=== PATIENT | female | born 1995 | race Caucasian/White ===

== ENCOUNTER 2024-05-29 13:24 | Emergency (ER) | payer OTHER ==
[~2024-05-29] VITALS: Ht 162.6 cm; Wt 123.0 kg
[2024-05-29 13:37] VITALS: BP 179/103; PULSE 66; RESP 17; TEMP 97.5; O2SAT 100
[2024-05-29] MEDS ORDERED: TETRACAINE HCL/PF 0.5% OPTH 4 ML BTL ONE (14:30)
[2024-05-29] MEDS ORDERED: FLUORESCEIN OPTH STRIP 1 MG ONE (14:30)
[2024-05-29] MEDS: FLUORESCEIN OPTH STRIP 1 MG OP ONE (14:31)
[2024-05-29] MEDS ORDERED: ERYT5OIN51 OP (14:38)
[2024-05-29] MEDS: TETRACAINE 1% 2 ML AMP INJ ONE (15:20)
[2024-05-29] MEDS: TETRACAINE HCL/PF 0.5% OPTH 4 ML BTL OP ONE (15:20)
[2024-05-29 15:35] VITALS: BP 145/88; PULSE 70; RESP 17; TEMP 98.2; O2SAT 100
== END 2024-05-29 15:35 | disposition home or self-care (01) ==
LOC: MED 13:24
DX: S05.02XA Injury of conjunctiva and corneal abrasion without foreign body, left eye, initial encounter (principal); R03.0 Elevated blood-pressure reading, without diagnosis of hypertension; J45.909 Unspecified asthma, uncomplicated; Z79.899 Other long term (current) drug therapy; X58.XXXA Exposure to other specified factors, initial encounter; Y92.89 Other specified places as the place of occurrence of the external cause; Y93.89 Activity, other specified; Y99.8 Other external cause status
CPT/HCPCS: 99283; J3490